=== PATIENT | female | born 1985 | race Caucasian/White ===

== ENCOUNTER 2021-08-17 17:04 | Emergency (ER) | payer SELFPAY ==
[~2021-08-17] VITALS: Ht 157.5 cm; Wt 56.8 kg
[2021-08-17 18:03] VITALS: TEMP 99.2
[2021-08-17] MEDS ORDERED: AMOXICILLIN 8751 TAB PO (20:47)
[2021-08-17 21:22] VITALS: BP 119/81; PULSE 87
== END 2021-08-17 21:22 | disposition home or self-care (01) ==
LOC: COL.ER 17:04
DX: J32.9 Chronic sinusitis, unspecified (principal); Z87.891 Personal history of nicotine dependence